=== PATIENT | female | born 1990 | race Caucasian/White ===

== ENCOUNTER 2018-09-26 21:23 | Outpatient (CLI) | payer OTHER ==
[2018-09-26 22:33] LABS: ADD MAN DIFF? NO
[2018-09-26 22:35] LABS: BASOPHILS % 0.1 % (0.0-2.0); EOSINOPHILS # 0.2 10^3/ul (0.0-0.5); EOSINOPHILS % 2.7 % (0.0-7.0); HEMATOCRIT 32.7 % (37.0-47.0); HEMOGLOBIN 10.7 g/dl (12.0-16.0); LYMPHOCYTES # 1.1 10^3/ul (0.8-2.9); LYMPHOCYTES % 13.6 % (15.0-51.0); MEAN CORPUSCULAR HEMOGLOBIN 27.5 pg (29.0-33.0); MEAN CORPUSCULAR HGB CONC 32.7 g/dl (32.0-37.0); MEAN CORPUSCULAR VOLUME 84.1 fl (82.0-101.0); MEAN PLATELET VOLUME 11.2 fl (7.4-10.4); MONOCYTE # 0.6 10^3/ul (0.3-0.9); NEUTROPHILS % 75.2 % (39.0-77.0); PLATELET COUNT 181 10^3/UL (140-415); RED BLOOD COUNT 3.89 10^6/ul (4.20-5.40); RED CELL DISTRIBUTION WIDTH 13.1 % (11.5-14.5)
[2018-09-26 22:39] LABS: ADD UMIC NO; UR ASCORBIC ACID NEGATIVE (NEGATIVE); UR BILIRUBIN (Dip) NEGATIVE (NEGATIVE); UR BLOOD (Dip) NEGATIVE (NEGATIVE); UR CLARITY CLEAR (CLEAR); UR COLOR YELLOW (YELLOW); UR GLUCOSE (Dip) NEGATIVE (NEGATIVE); UR KETONES (Dip) NEGATIVE (NEGATIVE); UR LEUKOCYTE ESTERASE (Dip) NEGATIVE Leu/ul (NEGATIVE); UR NITRITE (Dip) NEGATIVE (NEGATIVE); UR SPECIFIC GRAVITY (Dip) 1.015 (1.003-1.030); UR TOTAL PROTEIN (Dip) NEGATIVE (NEGATIVE); UR UROBILINOGEN (Dip) NEGATIVE (NEGATIVE)
[2018-09-26 22:53] LABS: ALANINE AMINOTRANSFERASE 15 IU/L (13-69); ALBUMIN 2.6 g/dl (3.3-4.9); ALBUMIN/GLOBULIN RATIO 0.86; ALKALINE PHOSPHATASE 58 IU/L (42-121); AMYLASE 72 U/L (11-123); ANION GAP 6 (5-13); ASPARTATE AMINO TRANSFERASE 15 IU/L (15-46); BLOOD UREA NITROGEN 9 mg/dl (7-20); CALCIUM 8.3 mg/dl (8.4-10.2); CARBON DIOXIDE 23 mmol/L (21-31); CHLORIDE 108 mmol/L (97-110); CREATININE 0.41 mg/dl (0.44-1.00); Estimated GFR > 60 mL/min (>60); GLUCOSE 101 mg/dl (70-220); LIPASE 53 U/L (23-300); POTASSIUM 3.6 mmol/L (3.5-5.1); SODIUM 137 mmol/L (135-144); TOTAL PROTEIN 5.6 g/dl (6.1-8.1)
[2018-09-26] MEDS ORDERED: LACTATED RINGER'S 1,000 ML IV (23:00)
[2018-09-26] MEDS: LACTATED RINGER'S 1,000 ML IV (23:40)
[2018-09-26] MEDS: ONDANSETRON 4 MG INJ IV (23:43)
[2018-09-26] MEDS: AL HYDROX/MG HYDROX/SIMETH 30 ML CUP PO (23:43)
[2018-09-27] MEDS: LIDOCAINE/MYLANTA 40 ML BTL PO (00:55)
== END 2018-09-27 00:57 | disposition home or self-care (01) ==
LOC: OBT 21:23 → L-D 21:23
DX: O26.892 Other specified pregnancy related conditions, second trimester (principal); Z3A.21 21 weeks gestation of pregnancy; K52.9 Noninfective gastroenteritis and colitis, unspecified
CPT/HCPCS: 36415; 76817; 80053; 81003; 82150; 83690; 85025; 87086; 96360

== ENCOUNTER 2019-01-20 13:18 | Inpatient (IN) | payer OTHER ==
[2019-01-20 15:15] LABS: ADD MAN DIFF? NO
[2019-01-20 15:20] LABS: BASOPHILS % 0.2 % (0.0-2.0); EOSINOPHILS # 0.1 10^3/ul (0.0-0.5); EOSINOPHILS % 0.9 % (0.0-7.0); HEMATOCRIT 36.3 % (37.0-47.0); HEMOGLOBIN 11.7 g/dl (12.0-16.0); LYMPHOCYTES # 1.6 10^3/ul (0.8-2.9); LYMPHOCYTES % 13.5 % (15.0-51.0); MEAN CORPUSCULAR HEMOGLOBIN 27.5 pg (29.0-33.0); MEAN CORPUSCULAR HGB CONC 32.2 g/dl (32.0-37.0); MEAN CORPUSCULAR VOLUME 85.4 fl (82.0-101.0); MEAN PLATELET VOLUME 12.1 fl (7.4-10.4); NEUTROPHIL # 9.3 10^3/ul (1.6-7.5); NEUTROPHILS % 76.5 % (39.0-77.0); PLATELET COUNT 187 10^3/UL (140-415); RED BLOOD COUNT 4.25 10^6/ul (4.20-5.40); RED CELL DISTRIBUTION WIDTH 13.8 % (11.5-14.5)
[2019-01-20 15:20] LABS: WHITE BLOOD COUNT 12.1 10^3/ul (4.8-10.8)
[2019-01-20 15:24] LABS: INR 0.92; PARTIAL THROMBOPLASTIN TIME 25.7 Sec (23.0-35.0); PROTIME 12.5 Sec (11.9-14.9)
[2019-01-20] MEDS ORDERED: BUTORPHANOL 1 MG INJ IV (15:30)
[2019-01-20] MEDS ORDERED: NALOXONE (0.4 MG/ML) INJ IV (15:30)
[2019-01-20] MEDS ORDERED: MISOPROSTOL 200 MCG TAB PR (15:30)
[2019-01-20] MEDS ORDERED: LIDOCAINE 1% (MPF) 30 ML INJ INJ (15:30)
[2019-01-20] MEDS ORDERED: METHYLERGONOVINE 0.2 MG INJ IM (15:30)
[2019-01-20] MEDS ORDERED: CARBOPROST 250 MCG INJ IM (15:30)
[2019-01-20] MEDS ORDERED: OXYTOCIN 30 UNITS/LR 500 ML IV ×2 (15:30)
[2019-01-20] MEDS ORDERED: BUTORPHANOL 2 MG INJ IV (15:30)
[2019-01-20] MEDS: LACTATED RINGER'S 1,000 ML IV ×2 (15:39→23:07)
[2019-01-20 15:57] LABS: HEPATITIS B SURFACE ANTIGEN NEGATIVE (NEGATIVE)
[2019-01-20] MEDS: FENTAnyl 2MCG/ML-ROPIV 0.2% 100 ML BAG EPI (23:08)
[2019-01-20] MEDS: ONDANSETRON 4 MG INJ IV (23:26)
[2019-01-20] MEDS ORDERED: DIPHENHYDRAMINE 50 MG INJ IV (23:30)
[2019-01-21] MEDS: LACTATED RINGER'S 1,000 ML IV ×2 (06:38→14:55)
[2019-01-21] MEDS: FENTAnyl 2MCG/ML-ROPIV 0.2% 100 ML BAG EPI ×2 (08:12→15:26)
[2019-01-21] MEDS: OXYTOCIN 30 UNITS/LR 500 ML IV ×2 (11:14→17:35)
[2019-01-21 15:23] LABS: RAPID PLASMA REAGIN NONREACTIVE (NR)
[2019-01-21] MEDS: MINERAL OIL LIGHT 10 ML VIAL TOP (17:13)
[2019-01-21] MEDS: CEFAZOLIN 2 GM/50 ML (PMX) 50 ML IVPB (20:25)
[2019-01-21] MEDS: IBUPROFEN 600 MG TAB PO ×2 (21:20→23:25)
[2019-01-21] MEDS ORDERED: OXYTOCIN 30 UNITS/LR 500 ML IV (22:00)
[2019-01-21] MEDS ORDERED: BENZOCAINE 20% 56 ML SPRAY TOP (22:00)
[2019-01-21] MEDS ORDERED: CARBOPROST 250 MCG INJ IM (22:00)
[2019-01-21] MEDS ORDERED: DIBUCAINE 1% 30 GM OINT TOP (22:00)
[2019-01-21] MEDS ORDERED: ZOLPIDEM 5 MG TAB PO (22:00)
[2019-01-21] MEDS ORDERED: HYDROCODONE/APAP (5/325) TAB PO (22:00)
[2019-01-21] MEDS ORDERED: WITCH HAZEL/GLYCERIN PAD PR (22:00)
[2019-01-21] MEDS ORDERED: MISOPROSTOL 200 MCG TAB PR (22:00)
[2019-01-21] MEDS ORDERED: METHYLERGONOVINE 0.2 MG INJ IM (22:00)
[2019-01-21] MEDS: LACTATED RINGER'S 1,000 ML IV* (22:28)
[2019-01-21] MEDS: KETOROLAC 30 MG INJ IV (23:25)
[2019-01-21] MEDS: CEPHALEXIN 500 MG CAP PO (23:28)
[2019-01-22] MEDS: IBUPROFEN 600 MG TAB PO ×4 (05:35→23:38)
[2019-01-22] MEDS: CEPHALEXIN 500 MG CAP PO ×4 (05:35→23:38)
[2019-01-22] MEDS: LACTATED RINGER'S 1,000 ML IV* ×2 (05:50→13:50)
[2019-01-22 08:31] LABS: ADD MAN DIFF? NO
[2019-01-22 08:37] LABS: BASOPHILS % 0.1 % (0.0-2.0); EOSINOPHILS # 0.1 10^3/ul (0.0-0.5); HEMATOCRIT 33.6 % (37.0-47.0); HEMOGLOBIN 10.8 g/dl (12.0-16.0); LYMPHOCYTES % 16.7 % (15.0-51.0); MEAN CORPUSCULAR HEMOGLOBIN 27.5 pg (29.0-33.0); MEAN CORPUSCULAR HGB CONC 32.1 g/dl (32.0-37.0); MEAN CORPUSCULAR VOLUME 85.5 fl (82.0-101.0); MEAN PLATELET VOLUME 11.9 fl (7.4-10.4); MONOCYTE # 1.1 10^3/ul (0.3-0.9); MONOCYTES % 8.9 % (0.0-11.0); NEUTROPHIL # 8.7 10^3/ul (1.6-7.5); NEUTROPHILS % 72.7 % (39.0-77.0); PLATELET COUNT 175 10^3/UL (140-415); RED BLOOD COUNT 3.93 10^6/ul (4.20-5.40); RED CELL DISTRIBUTION WIDTH 13.5 % (11.5-14.5)
[2019-01-22 08:37] LABS: WHITE BLOOD COUNT 11.9 10^3/ul (4.8-10.8)
[2019-01-22] MEDS: SENNA/DOCUSATE NA (8.6MG/50MG) TAB PO ×2 (09:00→20:47)
[2019-01-22] MEDS: MAGNESIUM HYDROXIDE 30ML CUP PO ×2 (09:00→20:47)
[2019-01-22] MEDS: HYDROCODONE/APAP (5/325) TAB PO ×2 (10:16→22:15)
[2019-01-22] MEDS: LANOLIN HPA 1 PKT TOP (23:42)
[2019-01-23] MEDS: CEPHALEXIN 500 MG CAP PO ×2 (05:39→11:43)
[2019-01-23] MEDS: IBUPROFEN 600 MG TAB PO ×2 (05:40→11:43)
[2019-01-23] MEDS: MAGNESIUM HYDROXIDE 30ML CUP PO (09:00)
[2019-01-23] MEDS: SENNA/DOCUSATE NA (8.6MG/50MG) TAB PO (09:35)
[2019-01-23] MEDS: DIPHTH/TET/ACEL PERTUSS (ADULT) 0.5 ML VIAL IM* (09:44)
[2019-01-23] MEDS: MEASLES,MUMPS,RUBELLA VACCINE INJ SC* (09:44)
[2019-01-23] MEDS: VARICELLA VACCINE LIVE/PF 1,350 UNIT/0.5 ML ML SC* (09:45)
== END 2019-01-23 14:36 | disposition home or self-care (01) | DRG 807 ==
LOC: OBT 13:18 → PP1 01-21 21:36 → L-D 13:18 → OBT 13:49 → L-D 13:50
PROVIDERS: Obstetrics & Gynecology
PROC: 10E0XZZ Delivery of Products of Conception, External Approach (ICD-10-PCS; principal; 2019-01-21)
DX: O80 Encounter for full-term uncomplicated delivery (principal); Z37.0 Single live birth; Z3A.38 38 weeks gestation of pregnancy
CPT/HCPCS: 62319; 85025; 85610; 85730; 86592; 86850; 86900; 86901; 87340

== ENCOUNTER 2019-08-13 14:03 | Emergency (ER) | payer OTHER ==
[2019-08-13 15:46] LABS: ADD MAN DIFF? NO
[2019-08-13 15:48] LABS: WHITE BLOOD COUNT 6.7 10^3/ul (4.8-10.8)
[2019-08-13 15:48] LABS: BASOPHILS % 0.3 % (0.0-2.0); EOSINOPHILS # 0.3 10^3/ul (0.0-0.5); EOSINOPHILS % 4.5 % (0.0-7.0); HEMATOCRIT 38.2 % (37.0-47.0); HEMOGLOBIN 11.9 g/dl (12.0-16.0); LYMPHOCYTES # 2.2 10^3/ul (0.8-2.9); LYMPHOCYTES % 32.4 % (15.0-51.0); MEAN CORPUSCULAR HGB CONC 31.2 g/dl (32.0-37.0); MEAN CORPUSCULAR VOLUME 83.6 fl (82.0-101.0); MEAN PLATELET VOLUME 11.3 fl (7.4-10.4); MONOCYTE # 0.7 10^3/ul (0.3-0.9); MONOCYTES % 10.6 % (0.0-11.0); NEUTROPHIL # 3.5 10^3/ul (1.6-7.5); NEUTROPHILS % 52.1 % (39.0-77.0); PLATELET COUNT 266 10^3/UL (140-415); RED BLOOD COUNT 4.57 10^6/ul (4.20-5.40); RED CELL DISTRIBUTION WIDTH 13.5 % (11.5-14.5)
[2019-08-13] MEDS: SOD CHLORIDE 0.9% 1,000 ML IV (15:52)
[2019-08-13] MEDS: morphine 4 MG/ML VIAL IV (15:55)
[2019-08-13] MEDS: ONDANSETRON 4 MG INJ IV (15:55)
[2019-08-13 16:02] LABS: ADD UMIC YES; UR ASCORBIC ACID NEGATIVE (NEGATIVE); UR BACTERIA FEW /HPF (NONE SEEN); UR BILIRUBIN (Dip) NEGATIVE (NEGATIVE); UR BLOOD (Dip) NEGATIVE (NEGATIVE); UR CLARITY CLOUDY (CLEAR); UR COLOR YELLOW (YELLOW); UR GLUCOSE (Dip) NEGATIVE (NEGATIVE); UR KETONES (Dip) NEGATIVE (NEGATIVE); UR LEUKOCYTE ESTERASE (Dip) 2+ Leu/ul (NEGATIVE); UR NITRITE (Dip) NEGATIVE (NEGATIVE); UR RBC 2 /HPF (0-5); UR SPECIFIC GRAVITY (Dip) 1.018 (1.003-1.030); UR SQUAMOUS EPITHELIAL CELL MODERATE /HPF (FEW); UR TOTAL PROTEIN (Dip) NEGATIVE (NEGATIVE); UR UROBILINOGEN (Dip) NEGATIVE (NEGATIVE); UR WBC 52 /HPF (0-5)
[2019-08-13 16:05] LABS: ALANINE AMINOTRANSFERASE 26 IU/L (13-69); ALBUMIN 4.4 g/dl (3.3-4.9); ALBUMIN/GLOBULIN RATIO 1.46; ALKALINE PHOSPHATASE 62 IU/L (42-121); ANION GAP 9 (5-13); ASPARTATE AMINO TRANSFERASE 19 IU/L (15-46); BILIRUBIN,INDIRECT 0.3 mg/dl (0-1.1); BILIRUBIN,TOTAL 0.3 mg/dl (0.2-1.3); BLOOD UREA NITROGEN 11 mg/dl (7-20); CALCIUM 9.2 mg/dl (8.4-10.2); CARBON DIOXIDE 26 mmol/L (21-31); CHLORIDE 105 mmol/L (97-110); CREATININE 0.68 mg/dl (0.44-1.00); Estimated GFR > 60 mL/min (>60); GLUCOSE 86 mg/dl (70-220); LIPASE 202 U/L (23-300); POTASSIUM 3.9 mmol/L (3.5-5.1); SODIUM 140 mmol/L (135-144); TOTAL PROTEIN 7.4 g/dl (6.1-8.1)
[2019-08-13] MEDS: IOHEXOL 300MG/ML 150 ML BTL (17:01)
[2019-08-13] MEDS: SOD CHLORIDE 0.9% 100 ML (17:02)
[2019-08-13] MEDS ORDERED: KETOROLAC 30 MG INJ IM (18:19)
[2019-08-13] MEDS ORDERED: CEFTRIAXONE 250 MG INJ IM (18:30)
[2019-08-13] MEDS ORDERED: AZITHROMYCIN 500 MG TAB PO (18:30)
[2019-08-13] MEDS: KETOROLAC 30 MG INJ IV (18:54)
[2019-08-13] MEDS: CEFTRIAXONE 250 MG INJ IVPB (18:57)
[2019-08-13] MEDS: DOXYCYCLINE 100 MG TAB PO (19:04)
[2019-08-13] MEDS: metroNIDAZOLE 500 MG TAB PO (19:04)
== END 2019-08-13 19:22 | disposition home or self-care (01) ==
LOC: FTE 14:03
DX: N83.201 Unspecified ovarian cyst, right side (principal); F17.210 Nicotine dependence, cigarettes, uncomplicated
CPT/HCPCS: 36415; 74177; 76856; 80053; 81001; 81025; 83690; 85025; 87086; 87210; 87591; 96374; 96375; 99285-25